=== PATIENT | male | born 1950 | race Two or more races ===

== ENCOUNTER 2022-12-09 17:04 | Emergency (ER) | payer OTHER ==
[2022-12-09 17:11] VITALS: BP 142/94; PULSE 83; RESP 18; TEMP 98.2; BMI 23.1
[2022-12-09] MEDS ORDERED: LACTATED RINGERS SOLUTION 1000 ML INFUS.BAG IV ONE (17:59)
[2022-12-09] MEDS ORDERED: PANTOPRAZOLE SODIUM 40 MG VIAL IVPUSH ONE (18:02)
[2022-12-09] MEDS ORDERED: ACETAMINOPHEN 1000 MG/100 ML BAG IVPB ONE (18:03)
[2022-12-09] MEDS ORDERED: PANTOPRAZOLE SODIUM 40 MG/100 ML BAG IVPB ONE (18:20)
[2022-12-09] MEDS ORDERED: ACETAMINOPHEN INJECTION 100 ML IVPB ONE ×2 (18:21→21:52)
[2022-12-09 18:50] LABS: BASO % 0.2 % (0-2.0); EOS % 0.7 % (0-4.5); HEMATOCRIT 50.7 % (35.4-49); LYMPH % 21.7 % (8-40); MCH 30.1 pg (25.7-33.7); MCHC 33.6 g/dl (32.0-35.9); MEAN CELL VOLUME 89.6 fl (80-96); MEAN PLT VOLUME 11.1 fl (7.5-11.1); NEUT % 66.4 % (42.8-82.8); PLATELET COUNT 134 10^3/uL (134-434); RBC 5.66 M/mm3 (4.00-5.60); RDW 14.1 % (11.9-15.9); WHITE BLOOD COUNT 8.9 K/mm3 (4.0-10.0)
[2022-12-09 19:15] LABS: POTASSIUM 4.1 mmol/L (3.5-5.1)
[2022-12-09 19:18] LABS: BLOOD UREA NITROGEN 18.9 mg/dL (7-18)
[2022-12-09 19:19] LABS: ALBUMIN 3.7 g/dl (3.4-5.0); CALCIUM 9.1 mg/dL (8.5-10.1)
[2022-12-09 19:22] LABS: CREATININE 1.5 mg/dL (0.55-1.3)
[2022-12-09 19:24] LABS: BILIRUBIN,TOTAL 1.9 mg/dL (0.2-1); TOT PROT 7.5 g/dl (6.4-8.2)
[2022-12-09] MEDS ORDERED: PANTOPRAZOLE SODIUM 40 MG VIAL ONE (21:52)
== END 2022-12-10 00:23 | disposition left against medical advice (07) ==
LOC: JER 17:04
PROC: 3E033NZ Introduction of Analgesics, Hypnotics, Sedatives into Peripheral Vein, Percutaneous Approach (ICD-10-PCS; principal; 2022-12-09)
PROC: 3E033GC Introduction of Other Therapeutic Substance into Peripheral Vein, Percutaneous Approach (ICD-10-PCS; 2022-12-09)
DX: R10.13 Epigastric pain (principal); R11.10 Vomiting, unspecified; R63.0 Anorexia
CPT/HCPCS: 36415; 71046-TC-FY; 74177-TC; 80053; 83690; 84484; 85025; 93005; 93010; 99285-25; Q9967

== ENCOUNTER 2022-12-20 05:04 | Day surgery (SDC) | payer OTHER ==
[2022-12-20 11:06] VITALS: TEMP 99; BMI 21.6
[2022-12-20 14:51] VITALS: PULSE 87
[2022-12-20 14:53] VITALS: BP 139/91; RESP 20
== END 2022-12-20 12:55 | disposition home or self-care (01) ==
LOC: JASU-ENDO 05:04
PROVIDERS: ATTEND Student in an Organized Health Care Education/Training Program
PROC: 0DB68ZX Excision of Stomach, Via Natural or Artificial Opening Endoscopic, Diagnostic (ICD-10-PCS; 2022-12-20)
PROC: 0DB28ZX Excision of Middle Esophagus, Via Natural or Artificial Opening Endoscopic, Diagnostic (ICD-10-PCS; principal; 2022-12-20 11:00)
DX: K29.50 Unspecified chronic gastritis without bleeding (principal); B96.81 Helicobacter pylori [H. pylori] as the cause of diseases classified elsewhere; K22.81 Esophageal polyp; I10 Essential (primary) hypertension; K26.9 Duodenal ulcer, unspecified as acute or chronic, without hemorrhage or perforation
CPT/HCPCS: 88305-TC; 88342-TC

== ENCOUNTER 2023-11-05 17:20 | Emergency (ER) | payer OTHER ==
[2023-11-05 17:28] VITALS: BP 147/92; PULSE 69; RESP 18; TEMP 97.7; BMI 21.7
[2023-11-05 18:03] LABS: BASO % 0.1 % (0-2.0); EOS % 0.9 % (0-4.5); HEMATOCRIT 49.5 % (35.4-49); HEMOGLOBIN 17.1 GM/dL (11.7-16.9); MCH 29.7 pg (25.7-33.7); MCHC 34.5 g/dl (32.0-35.9); MEAN CELL VOLUME 86.1 fl (80-96); MEAN PLT VOLUME 10.7 fl (7.5-11.1); MONO % 9.8 % (3.8-10.2); NEUT % 69.2 % (42.8-82.8); PLATELET COUNT 184 10^3/uL (134-434); RBC 5.75 M/mm3 (4.00-5.60); RDW 14.3 % (11.9-15.9); WHITE BLOOD COUNT 9.8 K/mm3 (4.0-10.0)
[2023-11-05 18:09] LABS: PROTHROMBIN TIME (PATIENT) 11.5 SEC (9.7-13.0)
[2023-11-05] MEDS ORDERED: ACETAMINOPHEN INJECTION 100 ML IVPB ONE (18:12)
[2023-11-05] MEDS ORDERED: PANTOPRAZOLE SODIUM 40 MG/100 ML BAG IVPB ONE (18:14)
[2023-11-05] MEDS: PANTOPRAZOLE SODIUM 40 MG VIAL IVPUSH ONE (18:24)
[2023-11-05] MEDS: ACETAMINOPHEN 1000 MG/100 ML BAG IVPB ONE (18:24)
[2023-11-05 18:40] LABS: PH,URINE 6.5 (5.0-8.0); URINE APPEARANCE CLEAR; URINE BILIRUBIN NEGATIVE (NEGATIVE); URINE COLOR YELLOW; URINE GLUCOSE (UA) NEGATIVE (NEGATIVE); URINE KETONE 1+ (NEGATIVE); URINE LEUK ESTERASE NEGATIVE (NEGATIVE); URINE NITRITE NEGATIVE (NEGATIVE); URINE PROTEIN NEGATIVE (NEGATIVE)
[2023-11-05 18:45] LABS: POTASSIUM 4.3 mmol/L (3.5-5.1)
[2023-11-05 18:48] LABS: ALBUMIN 3.6 g/dl (3.4-5.0); BLOOD UREA NITROGEN 13.1 mg/dL (7-18); CALCIUM 9.3 mg/dL (8.5-10.1)
[2023-11-05 18:51] LABS: CREATININE 1.3 mg/dL (0.55-1.3)
[2023-11-05 18:53] LABS: BILIRUBIN,TOTAL 1.8 mg/dL (0.2-1); TOT PROT 7.8 g/dl (6.4-8.2)
[2023-11-05] MEDS ORDERED: MAG HYDROX/AL HYDROX/SIMETH 30 ML UNIT-DOSE CUP PO ONE (21:19)
== END 2023-11-05 21:53 | disposition home or self-care (01) ==
LOC: JER 17:20
PROC: 3E033NZ Introduction of Analgesics, Hypnotics, Sedatives into Peripheral Vein, Percutaneous Approach (ICD-10-PCS; principal; 2023-11-05)
PROC: 3E033GC Introduction of Other Therapeutic Substance into Peripheral Vein, Percutaneous Approach (ICD-10-PCS; 2023-11-05)
DX: R10.10 Upper abdominal pain, unspecified (principal); R63.0 Anorexia; R10.33 Periumbilical pain; K59.00 Constipation, unspecified
CPT/HCPCS: 36415; 74177-TC; 80053; 81003; 82550; 83690; 84484; 85025; 85610; 86850; 86900; 86901; 87086; 93005; 93010; 99285-25; J0131; Q9967